=== PATIENT | male | born 1985 | race Caucasian/White ===

== ENCOUNTER 2018-08-06 18:55 | Emergency (ER) | payer SELFPAY ==
[~2018-08-06] VITALS: Ht 172.7 cm; Wt 59.1 kg
[2018-08-06 19:14] VITALS: BP 159/95; Ht 172.7 cm; Wt 59.1 kg
[2018-08-06] MEDS ORDERED: BUPRENORPHIN-N1 EACH SL (19:15)
== END 2018-08-06 20:37 | disposition left against medical advice (07) ==
LOC: D.ER 18:55
DX: R44.0 Auditory hallucinations (principal)

== ENCOUNTER 2019-08-01 01:36 | Emergency (ER) | payer MEDICAID ==
[~2019-08-01] VITALS: Ht 172.7 cm; Wt 68.2 kg
[~2019-08-01 01:36] MED LIST: BUPRENORPHIN-N1 EACH SL
[2019-08-01 01:37] VITALS: Ht 172.7 cm; Wt 68.2 kg
[2019-08-01 02:36] LABS: BASOPHILS 0.5 % (0-2); EOSINOPHILS 2.1 % (0-7); HEMATOCRIT 37.3 % (42.0-54.0); HEMOGLOBIN 12.4 g/dL (13.5-17.5); MCHC 33.2 g/dL (31.0-37.0); MCV 90.3 fL (80.0-100.0); MONOCYTES 10.7 % (2-11); NEUTROPHILS 51.7 % (40-80); PLATELET COUNT 191 10x3/uL (130-400); RBC 4.13 10x6/uL (4.20-6.10); RDW 13.8 % (11.5-14.5); WBC 6.5 10x3/uL (4.8-10.8)
[2019-08-01 02:52] LABS: ALBUMIN 3.7 g/dL (3.4-5.0); ALKALINE PHOSPHATASE 69 U/L (46-116); ALT (SGPT) 9 U/L (10-68); BILIRUBIN - TOTAL 0.19 mg/dL (0.2-1.3); CALC OSMOLALITY 280 mosm/kg (275-300); CALCIUM 8.7 mg/dL (8.5-10.1); CARBON DIOXIDE 30.8 mmol/L (21.0-32.0); CHLORIDE - SERUM 103 mmol/L (98-107); CREATININE - SERUM 1.1 mg/dL (0.6-1.3); GLUCOSE 89 mg/dL (74-106); POTASSIUM - SERUM 3.5 mmol/L (3.5-5.1); PROTEIN - SERUM 7.3 g/dL (6.4-8.2); SODIUM 141 mmol/L (136-145); UREA NITROGEN 15 mg/dL (7-18); eGFR NON AFRICAN AMERICAN 82 mL/min (90-120)
[2019-08-01 04:57] VITALS: BP 140/89
== END 2019-08-01 06:23 | disposition home or self-care (01) ==
LOC: D.ER 01:36
PROVIDERS: Family Medicine
DX: S71.111A Laceration without foreign body, right thigh, initial encounter (principal); X58.XXXA Exposure to other specified factors, initial encounter